=== PATIENT | female | born 2000 | race Caucasian/White ===

== ENCOUNTER 2023-02-10 19:26 | Emergency (ER) | payer MEDICAID ==
[~2023-02-10] VITALS: Ht 157.5 cm; Wt 86.2 kg
[~2023-02-10 19:26] MED LIST: NABU-141 PO
--- NOTE | 2023-02-10 20:47 | NUR ---
BIBMOTHER FROM HOME C/O EPIGASTRIC & N/VX1 WEEK. HX DKA & UTI. PT A/OX4. TOLERATING R/A WELL WITH NO RESP DISTRESS. SAFETY MEASURES IN PLACE.
--- NOTE | 2023-02-10 20:50 | NUR ---
PT TAKING RX ZOFRAN WITH NO RELIEF. ON MACROBID ATB FOR UTI
--- NOTE | 2023-02-10 20:50 | NUR ---
URINE COLLECTED AND SENT TO LAB
[2023-02-10] MEDS ORDERED: ONDANSETRON HCL/PF 4 MG/2 ML VIAL IVP ONE (21:00)
[2023-02-10] MEDS ORDERED: FAMOTIDINE/PF INJ 20 MG/2 ML VIAL IV ONE ×2 (21:00→21:04)
[2023-02-10] MEDS ORDERED: IV NS 0.9% 1,000 ML BAG IV ONE (21:00)
[2023-02-10] MEDS ORDERED: ONDANSETRON HCL/PF 4 MG/2 ML VIAL ONE (21:03)
--- NOTE | 2023-02-10 21:10 | NUR ---
EXPLOSIVE OPERATOR GRENADE AT PT'S BEDSIDE
[2023-02-10 21:31] LABS: BASOPHILS % (AUTO) 0.3 % (0.0-2.0); HEMATOCRIT 45 % (33-45); HEMOGLOBIN 14.5 g/dL (11.5-14.8); LYMPHOCYTES # (AUTO) 1.4 K/uL (0.8-4.8); LYMPHOCYTES % (AUTO) 8.5 % (20.0-44.0); MEAN CORPUSCULAR HGB CONC 32 g/dl (31.0-36.0); MEAN CORPUSCULAR VOLUME 84 fL (82-100); MONOCYTES # (AUTO) 0.5 K/uL (0.1-1.30); MONOCYTES % (AUTO) 3.3 % (2.0-12.0); NEUTROPHILS # (AUTO) 14.3 K/uL (1.8-8.9); NEUTROPHILS % (AUTO) 87.9 % (43.0-81.0); PLATELET COUNT (AUTO) 356 K/uL (150-450); WHITE BLOOD COUNT (AUTO) 16.2 K/uL (4.3-11.0)
[2023-02-10 21:31] LABS: BILIRUBIN,URINE 1+ (NEGATIVE); COLOR,URINE YELLOW (YELLOW); LEUKOCYTE ESTERASE ,URINE NEGATIVE (NEGATIVE); NITRITE, URINE NEGATIVE (NEGATIVE); PH,URINE 6.5 (5.0-8.0); PROTEIN,URINE TRACE mg/dl (NEGATIVE); UGLUCOSE 3+ mg/dL (NEGATIVE); UROBILINOGEN,URINE 0.2 EU/dL (0.2)
[2023-02-10 21:44] LABS: WBC,URINE 0-2 /HPF (0-3)
[2023-02-10 21:45] LABS: BACTERIA,URINE Few /HPF (None Seen); MUCUS,URINE Few /LPF (None Seen)
[2023-02-10 21:52] LABS: CALCIUM, SERUM 9.5 mg/dL (8.5-10.1); CREATININE 0.7 mg/dL (0.6-1.3); POTASSIUM 3.5 mmol/L (3.5-5.1)
[2023-02-10 21:57] LABS: ALBUMIN 3.8 g/dL (3.4-5.0); BILIRUBIN,DIRECT 0.1 mg/dL (0.0-0.2); BILIRUBIN,TOTAL 0.6 mg/dL (0.2-1.0); TOTAL PROTEIN, SERUM 8.3 g/dL (6.4-8.2)
[2023-02-10] MEDS ORDERED: ONDA4TAB5 PO (22:05)
[2023-02-10] MEDS ORDERED: METO-295 PO (22:26)
[2023-02-10] MEDS ORDERED: INSULIN REGULAR, HUMAN 100 UNIT/ML 10 ML VIAL ONE (22:26)
[2023-02-10] MEDS ORDERED: INSULIN REGULAR, HUMAN 100 UNIT/ML 10 ML VIAL SQ ONE (22:30)
[2023-02-10 22:55] VITALS: BP 135/76; TEMP 98.1; O2SAT 98
--- NOTE | 2023-02-10 22:55 | NUR ---
Patient discharged to home in stable condition. Written and verbal after care instructions given. Patient verbalizes understanding of instruction.
== END 2023-02-10 22:56 | disposition home or self-care (01) ==
LOC: ER 19:32
DX: R11.10 Vomiting, unspecified (principal); E10.8 Type 1 diabetes mellitus with unspecified complications
CPT/HCPCS: 99284; 96374; 96361; 96375; 85025; 80048; 87086; 83690; 80076; 84703; 81001; 36415; 84702; 96372; J1815; J3490; J2405; J7030